=== PATIENT | female | born 1930 | race Caucasian/White ===

== ENCOUNTER → 2016-07-17 | Outpatient (CLI) | payer MEDICARE, MEDICAID ==
[2015-06-21 15:20] VITALS: BP 144/74
[~2016-07-17] MED LIST: AMARYL2 MG PO; CARDIZEM CD240 MG PO; CHILDREN'S ASPI81 M1 PO; COMPAZINE5 M1 PO; ELIQUIS5 MG PO; IRON TABLETS325 MG PO; LOVAZA1 GM PO; MULTAQ400 M1 PO; MULTI-DAY PLUS1 TA1 PO; NEURONTIN100 MG PO; NICODERM C14 MG/241 TD; NORCO 325 MG-51 TA1 PO; OMEPRAZOLE40 MG PO; PRADAXA75 MG PO; TAZTIA XT240 MG PO; ZOCOR10 MG PO
== END ==
LOC: LAB 14:46
DX: I10 Essential (primary) hypertension (principal); R73.09 Other abnormal glucose; I73.89 Other specified peripheral vascular diseases; D50.8 Other iron deficiency anemias; M81.0 Age-related osteoporosis without current pathological fracture

== ENCOUNTER → 2016-12-24 | Outpatient (CLI) | payer MEDICARE, MEDICAID ==
[~2016-12-24] VITALS: Ht 154.9 cm; Wt 69.5 kg
[2016-12-24 14:48] LABS: ALBUMIN 3.6 g/dL (3.5-5.0); BUN/CREATININE RATIO 17.6 (6.0-26.0); CALCIUM 9.5 mg/dL (8.4-10.2); POTASSIUM 4.3 mmol/L (3.6-5.0); TOTAL BILIRUBIN 0.5 mg/dL (0.2-1.3); TOTAL PROTEIN 7.8 g/dL (6.3-8.2)
[2016-12-24 14:51] LABS: EOS % 0.2 % (1.0-5.0); HEMATOCRIT 36.2 % (37.0-47.0); HEMOGLOBIN 11.1 g/dL (12.5-16.0); LYMPH# 1.7 (1.50-4.00); MEAN CELL VOLUME 76 fl (78-100); MEAN CORPUSCULAR HGB CONC 31 g/dL (33-37); MEAN PLATELET VOLUME 9.6 fl (7.4-10.4); MONO # 1.1 (0.20-0.80); NEU # 8.3 (1.40-6.50); PLATELET COUNT 383 K/mm3 (130-400); RED BLOOD COUNT 4.74 M/mm3 (4.10-5.30); WHITE BLOOD COUNT 11.1 K/mm3 (4.8-10.8)
[2016-12-24 15:05] VITALS: BP 146/68
[2016-12-24 16:03] LABS: MEAN CORPUSCULAR HEMOGLOBIN 23 pg (27-31); RED CELL DISTRIBUTION WIDTH 19.9 % (11.5-14.5)
[2016-12-24 17:59] LABS: PROTHROMBIN TIME 10.1 SECONDS (9.0-12.0)
[2016-12-24 23:01] LABS: URINE APPEARANCE CLOUDY; URINE BILIRUBIN NEGATIVE (NEGATIVE); URINE BLOOD NEGATIVE (NEGATIVE); URINE COLOR YELLOW; URINE GLUCOSE NEGATIVE (NEGATIVE); URINE KETONE NEGATIVE (NEGATIVE); URINE LEUKOCYTE ESTERASE NEGATIVE (NEGATIVE); URINE NITRATE POSITIVE (NEGATIVE); URINE PROTEIN(semi-quant) TRACE mg/dL (NEGATIVE); URINE UROBILINOGEN NORMAL (NORMAL)
== END ==
LOC: AMSURD 14:17
PROVIDERS: Internal Medicine
DX: Z01.818 Encounter for other preprocedural examination (principal); K43.9 Ventral hernia without obstruction or gangrene

== ENCOUNTER → 2017-03-12 | Outpatient (CLI) | payer MEDICARE, MEDICAID ==
[2016-12-24 15:05] VITALS: BP 146/68
== END ==
LOC: RAD 11:40
DX: J18.9 Pneumonia, unspecified organism (principal); J44.9 Chronic obstructive pulmonary disease, unspecified; Z95.0 Presence of cardiac pacemaker; Z87.09 Personal history of other diseases of the respiratory system

== ENCOUNTER 2017-04-04 14:03 | Emergency (ER) | payer MEDICARE, MEDICAID ==
[2017-04-04 15:49] LABS: HEMATOCRIT 38.8 % (37.0-47.0); HEMOGLOBIN 11.4 g/dL (12.5-16.0); LYMPH# 1.4 (1.50-4.00); MEAN CELL VOLUME 76 fl (78-100); MEAN PLATELET VOLUME 9.5 fl (7.4-10.4); NEU # 7.5 (1.40-6.50); PLATELET COUNT 395 K/mm3 (130-400); RED BLOOD COUNT 5.08 M/mm3 (4.10-5.30); WHITE BLOOD COUNT 9.9 K/mm3 (4.8-10.8)
[2017-04-04 15:51] LABS: MEAN CORPUSCULAR HEMOGLOBIN 22 pg (27-31); MEAN CORPUSCULAR HGB CONC 29 g/dL (33-37); RED CELL DISTRIBUTION WIDTH 19.1 % (11.5-14.5)
[2017-04-04 16:06] LABS: ALBUMIN 3.3 g/dL (3.5-5.0); BUN/CREATININE RATIO 18.6 (6.0-26.0); CALCIUM 9.1 mg/dL (8.4-10.2); TOTAL BILIRUBIN 0.2 mg/dL (0.2-1.3)
[2017-04-04 16:14] LABS: TROPONIN-I < 0.03 ng/mL (0.00-0.06)
[2017-04-04 17:42] VITALS: BP 121/62
== END 2017-04-04 17:36 | disposition home or self-care (01) ==
LOC: ED 14:03
PROVIDERS: Physician Assistant
DX: R07.89 Other chest pain (principal); C34.91 Malignant neoplasm of unspecified part of right bronchus or lung; I48.91 Unspecified atrial fibrillation; Z79.01 Long term (current) use of anticoagulants; Z79.82 Long term (current) use of aspirin; E11.9 Type 2 diabetes mellitus without complications; I25.10 Atherosclerotic heart disease of native coronary artery without angina pectoris; F17.210 Nicotine dependence, cigarettes, uncomplicated; J44.9 Chronic obstructive pulmonary disease, unspecified; E78.5 Hyperlipidemia, unspecified; Z85.528 Personal history of other malignant neoplasm of kidney; Z90.5 Acquired absence of kidney; Z95.0 Presence of cardiac pacemaker; Z79.84 Long term (current) use of oral hypoglycemic drugs
CPT/HCPCS: J1885